=== PATIENT | male | born 1970 | race Caucasian/White ===

== ENCOUNTER 2023-02-25 15:52 | Emergency (ER) | payer OTHER ==
[2023-02-25] MEDS ORDERED: Diphtheria,Pertussis(Acell),Tetanus Vaccine 0.5 ML Syringe IM ONE (16:39)
[2023-02-25] MEDS ORDERED: Lidocaine 1% 10 ML MDV INJECT ONE (16:39)
[2023-02-25] MEDS ORDERED: Bacitracin Oint 1 GM U/D Packet TOP ONE (17:36)
== END 2023-02-25 18:09 | disposition home or self-care (01) ==
LOC: JP.ED 15:52
DX: S60.552A Superficial foreign body of left hand, initial encounter (principal); Z23 Encounter for immunization; W45.8XXA Other foreign body or object entering through skin, initial encounter
CPT/HCPCS: 90471; 90715; 99283-25